=== PATIENT | female | born 1980 | race American Indian/Alaskan Native ===

== ENCOUNTER 2017-03-29 12:08 | Emergency (ER) | payer MEDICAID ==
[2017-03-29 12:50] VITALS: BP 100/60
[2017-03-29] MEDS ORDERED: ZOFRAN ODT PO ONE (15:21)
--- NOTE | 2017-03-29 15:26 | Emergency Department Report ---
ED N/V/D HPI - General Chief complaint: Nausea/Vomiting/Diarrhea Stated complaint: INGESTED MAGGOTS Time Seen by Provider: 03/29/17 15:14 Source: patient Mode of arrival: Ambulatory Limitations: No Limitations - History of Present Illness Initial comments: PT states this morning she fixed herself some cereal. PT states it was a new box of Honey Nut Cheerios and she saw something in it. PT states she noticed what appeared to be maggots. PT states she threw out the bowl of cereal and she poured more cereal from the box and she noticed more maggots. PT states she "freaked out" and threw up. PT states she was concerned because maggots are "flesh eating" PT states she notified the preventive medicine officer. PT states she is not sure if she ingested any maggots. PT states her stomach feels upset. PT States she is hungry but does not have an appetite. complaint: nausea, vomiting -: Sudden, hour(s) Description of Vomiting: food contents Associated Abdominal Pain: No Consistency: constant (nausea ) Improves with: vomiting Context: possible food poisoning Associated Symptoms: loss of appetite, nausea/vomiting. denies: fever/chills - Related Data Previous Rx's Medication Instructions Recorded Last Taken Type Ondansetron [Zofran Odt] 4 mg PO Q8HR PRN #10 tab.rapdis 03/29/17 Unknown Rx Allergies Allergy/AdvReac Type Severity Reaction Status Date / Time No Known Allergies Allergy Unverified 03/29/17 12:44 ED Review of Systems ROS: Stated complaint: INGESTED MAGGOTS Other details as noted in HPI Comment: All other systems reviewed and negative Constitutional: denies: chills, fever Gastrointestinal: nausea, vomiting (x 1 ) Psychiatric: anxiety ED Past Medical Hx - Past Medical History Previous Medical History?: No - Surgical History Additional Surgical History: x 2 , tubal ligation - Social History Smoking Status: Current Some Day Smoker Substance Use Type: Alcohol - Medications Home Medications: Home Medications Medication Instructions Recorded Confirmed Last Taken Type Ondansetron [Zofran Odt] 4 mg PO Q8HR PRN #10 tab.rapdis 03/29/17 Unknown Rx ED Physical Exam - General Limitations: No Limitations General appearance: alert, in no apparent distress - Head Head exam: Present: atraumatic, normocephalic, normal inspection - Eye Eye exam: Present: normal appearance, PERRL, EOMI. Absent: conjunctival injection - ENT ENT exam: Present: normal exam, mucous membranes moist, normal external ear exam - Neck Neck exam: Present: normal inspection, full ROM - Respiratory Respiratory exam: Present: normal lung sounds bilaterally. Absent: respiratory distress, chest wall tenderness - Cardiovascular Cardiovascular Exam: Present: regular rate, normal rhythm, normal heart sounds - GI/Abdominal GI/Abdominal exam: Present: soft, normal bowel sounds. Absent: tenderness, guarding, rebound - Extremities Exam Extremities exam: Present: normal inspection, full ROM - Back Exam Back exam: Present: normal inspection, full ROM. Absent: tenderness, CVA tenderness (R), CVA tenderness (L) - Neurological Exam Neurological exam: Present: alert, oriented X3, normal gait - Psychiatric Psychiatric exam: Present: normal affect, normal mood - Skin Skin exam: Present: warm, dry, intact, normal color ED Course Vital Signs 03/29/17 12:45 Temperature 97.5 F L Pulse Rate 68 Blood Pressure 100/60 O2 Sat by Pulse 100 Oximetry - Reevaluation(s) Reevaluation #1: 03/29/17 15:28 PT aware of plan of care. PT has no questions at this time. - Pulse Oximetry Interpretation Digit-Finger Initial Pulse Oximetry Readin Actions Taken: none ED Medical Decision Making - Differential Diagnosis acute anxiety, ingestion of maggot Critical Care Time: No Critical care attestation.: If time is entered above; I have spent that time in minutes in the direct care of this critically ill patient, excluding procedure time. ED Disposition Clinical Impression: Food contamination, Nausea Disposition: DC-01 TO HOME OR SELFCARE Is pt being admited?: No Does the pt Need Aspirin: No Condition: Stable Instructions: Foreign Body Ingestion (ED) Additional Instructions: clear liquid diet today and then advance as tolerated Prescriptions: Ondansetron [Zofran Odt] 4 mg PO Q8HR PRN #10 tab.rapdis PRN Reason: Nausea Referrals: PRIMARY CARE, [Primary Care Provider] - 3-5 Days JOCELYN BRENNAN MD [Staff Physician] - 3-5 Days Time of Disposition: 15:31
== END 2017-03-29 15:38 | disposition home or self-care (01) ==
LOC: ED 12:08
DX: A05.9 Bacterial foodborne intoxication, unspecified (principal); R11.0 Nausea; Z72.0 Tobacco use
CPT/HCPCS: 99282; Q0162

== ENCOUNTER 2019-04-08 07:49 | Observation (INO) | payer MEDICAID, OTHER ==
[2019-04-07 11:26] LABS: Basophils % (Auto) 0.7 % (0.0-1.8); Eosinophils # (Auto) 0.2 K/mm3 (0.0-0.4); Eosinophils % (Auto) 4.3 % (0.0-4.3); Hematocrit 34.8 % (30.3-42.9); Hemoglobin 11.8 gm/dl (10.1-14.3); Lymphocytes # (Auto) 2.3 K/mm3 (1.2-5.4); Lymphocytes % (Auto) 39.8 % (13.4-35.0); Mean Corpuscular HGB Conc 34 % (30-34); Mean Corpuscular Volume 99 fl (79-97); Monocytes # (Auto) 0.5 K/mm3 (0.0-0.8); Monocytes % (Auto) 8.8 % (0.0-7.3); Platelet Count 438 K/mm3 (140-440); Red Blood Count 3.52 M/mm3 (3.65-5.03)
--- NOTE | 2019-04-07 11:59 | Anesthesia Consultation ---
Anesthesia Consult and Med Hx Date of service: 04/07/19 - Airway Anesthetic Teeth Evaluation: Good ROM Head & Neck: Adequate Mental/Hyoid Distance: Adequate Mallampati Class: Class II Intubation Access Assessment: Probably Good - Pulmonary Exam CTA: Yes - Cardiac Exam Cardiac Exam: RRR - Pre-Operative Health Status ASA Pre-Surgery Classification: ASA2 Proposed Anesthetic Plan: General Nerve Block: TAP - Pulmonary Hx Smoking: Yes (occasional) Hx Asthma: Yes (last albuterol use 1 month ago ) Hx Respiratory Symptoms: No - Cardiovascular System Hx Hypertension: No Hx Heart Attack/AMI: No - Central Nervous System Hx Seizures: No CVA: No - Gastrointestinal Hx Gastroesophageal Reflux Disease: No - Endocrine Hx Renal Disease: No Hx Liver Disease: No Hx Insulin Dependent Diabetes: No Hx Non-Insulin Dependent Diabetes: No Hx Thyroid Disease: No - Other Systems Hx Obesity: No - Additional Comments Anesthesia Medical History Comments: No hx anesthetic complications.
[~2019-04-08 07:49] MED LIST: LACTATED RINGERS 1,000 ML IV SCH; NEURONTIN PO NR; SUBLIMAZE IV PRN; VERSED IV NR
[2019-04-08] MEDS ORDERED: MARCAINE-EPI 0.5%-1:200,000 INFILTRATI ONE (08:42)
--- NOTE | 2019-04-08 10:18 | History and Physical Report ---
History of Present Illness Date of examination: 04/08/19 Date of admission: 04/08/2019 Chief complaint: Dysfunctional uterine bleeding History of present illness: 39-year-old with a history of dysfunctional uterine bleeding and dysmenorrhea. Patient attempted medical management but continues to have worsening of her symptoms. The patient elected to undergo definitive surgical management. Past History Past Medical History: asthma Past Surgical History: section Social history: - Obstetrical History : 5 Para: 2 Hx # Term Pregnancies: 2 Number of Pregnancies: 0 Spontaneous Abortions: 1 Induced : 2 Number of Living Children: 2 Medications and Allergies Allergies Allergy/AdvReac Type Severity Reaction Status Date / Time No Known Allergies Allergy Unverified 04/02/19 19:07 Home Medications Medication Instructions Recorded Confirmed Last Taken Type ALBUTEROL NEB's [Proventil] 2.5 mg IH TID PRN 12/12/18 04/02/19 Unknown History Albuterol Sulfate [Ventolin Hfa] 2 puff IH Q4H PRN 12/12/18 04/02/19 Unknown History Ibuprofen [Motrin] 800 mg PO Q8HR PRN 12/12/18 04/02/19 Unknown History Active Meds: Active Medications Celecoxib (Celebrex) 200 mg PO PREOP NR Stop: 04/08/19 18:00 Last Admin: 04/08/19 08:40 Dose: 200 mg Documented by: Fentanyl (Sublimaze) 100 mcg IV ONCE PRN PRN Reason: sedation for nerve block Stop: 04/08/19 18:00 Gabapentin (Neurontin) 300 mg PO PREOP NR Stop: 04/08/19 18:00 Last Admin: 04/08/19 08:40 Dose: 300 mg Documented by: Lactated Ringer's (Lactated Ringers) 1,000 mls @ 100 mls/hr IV DIRECT LAWANDA Last Admin: 04/08/19 08:40 Dose: 100 mls/hr Documented by: Midazolam HCl (Versed) 2 mg IV PREOP NR Stop: 04/08/19 20:00 Review of Systems All systems: negative Genitourinary: vaginal bleeding, pelvic pain - Vital Signs Vital signs: Vital Signs Temp Pulse Resp BP Pulse Ox 97.4 F L 64 18 108/74 99 04/07/19 10:30 04/07/19 10:30 04/07/19 10:30 04/07/19 10:30 04/07/19 10:30 Temp Pulse Resp BP Pulse Ox 97.5 F L 60 18 108/76 99 04/08/19 08:10 04/08/19 08:10 04/08/19 08:40 04/08/19 08:10 04/08/19 08:10 - Physical Exam Breasts: Positive: deferred Cardiovascular: Regular rate Lungs: Positive: Clear to auscultation Abdomen: Positive: normal appearance Results Result Diagrams: 04/07/19 10:45 Abnormal lab results 04/07/19 Range/Units 10:45 RBC 3.52 L (3.65-5.03) M/mm3 MCV 99 H (79-97) fl MCH 33 H (28-32) pg RDW 13.0 L (13.2-15.2) % Lymph % (Auto) 39.8 H (13.4-35.0) % [place] % (Auto) 8.8 H (0.0-7.3) % All other labs normal. Assessment and Plan - Patient Problems (1) Chronic pelvic pain in female Current Visit: Yes Status: Acute Plan to address problem: Patient is scheduled for robotic hysterectomy and other indicated procedures (2) Dysmenorrhea Current Visit: Yes Status: Acute (3) Dysfunctional uterine bleeding Current Visit: Yes Status: Acute
[2019-04-08] MEDS ORDERED: NEOSPORIN GU IR ONE ×2 (10:30→11:38)
[2019-04-08] MEDS ORDERED: DIPRIVAN 10 MG/ML IV ONE (10:31)
[2019-04-08] MEDS ORDERED: DILAUDID ONE ×2 (10:31→13:26)
[2019-04-08] MEDS ORDERED: ANCEF/STERILE WATER 2 GM/20 ML 2 GM/20 ML SYRINGE IV NR (11:00)
[2019-04-08] MEDS ORDERED: DECADRON ONE (11:29)
[2019-04-08] MEDS ORDERED: ZOFRAN ONE (11:29)
[2019-04-08] MEDS ORDERED: LACTATED RINGERS 1,000 ML ONE ×2 (11:37→13:32)
[2019-04-08] MEDS ORDERED: NACL 0.9% IR ONE ×2 (11:38)
[2019-04-08] MEDS ORDERED: ROBINUL ONE ×2 (12:41)
[2019-04-08] MEDS ORDERED: BLOXIVERZ ONE (12:41)
[2019-04-08] MEDS ORDERED: ZOFRAN IV PRN (12:42)
[2019-04-08] MEDS ORDERED: MORPHINE IV PRN (12:42)
[2019-04-08] MEDS ORDERED: IBUPROFEN PO PRN (12:42)
[2019-04-08] MEDS ORDERED: TYLENOL PO PRN (12:42)
[2019-04-08] MEDS ORDERED: AMBIEN PO PRN (12:42)
--- NOTE | 2019-04-08 12:50 | Operative Report ---
Operative Report Operative Report: Date of surgery: 04/08/2019 Preoperative diagnoses: Dysmenorrhea; chronic pelvic pain Postoperative diagnoses: Same as above Procedure: Robotic hysterectomy and bilateral salpingo-oophorectomy Surgeon: Asia Jarvis M.D. Hobbing Machine Operator: Tereza Sierra Anesthesia: Gen. endotracheal anesthesia Estimated blood loss: 50 mL Pathology: Cervix, uterus, bilateral tubes and ovaries Indication: 39-year-old with a history of chronic pelvic pain and dysmenorrhea. Patient failed medical management and elected to undergo definitive surgical management. Procedure: The patient was taken to the operating room and given general endotracheal anesthesia without complication. She is prepped and draped in a normal sterile fashion. A bivalve speculum was placed in the patient's vagina and a single- tooth tenaculum placed on the anterior lip of the cervix. The uterus was sounded with the uterine sound. A Shoto uterine manipulator was placed in the bivalve speculum was then removed. Attention was then turned to the patient's abdomen where a 12 millimeter supra umbilical skin incision was then made. A Veress needle was placed and peritoneal entry was verified water-filled syringe. Insufflation of the peritoneal cavity was performed with CO2 gas. The 12 mm trocar was then placed under direct visualization. An additional 8 mm trocar was placed on the patient's left and right lateral side just opposite of the supraumbilical trocar. An additional 5 mm right lateral trocar was then placed as the accessory port. The Nghia Booth device was used to close the fascia of the 12 mm incision. The patient was then placed in steep Trendelenburg. General survey revealed evidence of an omental adhesion to the anterior abdominal wall that was lysed with 10 positive polar scissors. There was evidence of bilateral ovarian cysts. The uterus was normal in appearance. The da Natalie robot was then engaged. A fenestrated forcep was placed in arm 2 and a vessel sealer was placed in arm 1. The surgeon then transferred to the surgical console. The infundibulopelvic ligament was then isolated on the right. The vessel sealer was used to coagulate the ligament which was then transected. The tube and ovary were transected from the supply. The round ligament was then coagulated and transected also. The vesicouterine peritoneum was then entered from the patient's right side. The uterine vessels were then coagulated with the vessel sealer. The vessels were then transected . Attention was then turned to the patient's left side where the infundibulopelvic ligament and mesosalpinx were again isolated coagulated and transected. The vesical peritoneum was then entered from the left and joined in the midline. Peritoneum was reflected off of the lower uterine segment. Uterine vessels were then coagulated and then transected. The blood supply to the uterus was adequately contained, a posterior colpotomy was made. The V care ring was visualized. Posterior colpotomy was created with the monopolar scissors. The incision was continued circumferentially until anterior colpotomy was made. The cervix and uterus were amputated from the vaginal cuff. The uterus was then removed along with the tubes and ovaries bilaterally through the vagina and a warm laparotomy sponge was placed and maintain the pneumoperitoneum. The vaginal cuff was then closed in a running fashion with V lock suture. Irrigation of the pelvis was performed. Hemoblast was applied to the incision. The skin was then reapproximated with 4-0 Monocryl. The tissue was sent to pathology which included the cervix, uterus, tubes and ovaries. The patient was then successfully extubated. She was then taken to the recovery room in stable condition. All sponge laps and needle counts were correct x2.
[2019-04-08] MEDS ORDERED: ZEMURON IV ONE (13:00)
[2019-04-08] MEDS ORDERED: DILAUDID IM PRN (13:25)
[2019-04-08] MEDS: TORADOL IV SCH ×2 (16:24→23:45)
[2019-04-08] MEDS: PERCOCET 5/325 PO PRN (19:35)
[2019-04-09] MEDS: PERCOCET 5/325 PO PRN ×2 (04:59→09:01)
[2019-04-09 06:40] LABS: Hematocrit 35.5 % (30.3-42.9)
--- NOTE | 2019-04-09 09:01 | Progress Note ---
Assessment and Plan - Patient Problems (1) Chronic pelvic pain in female Current Visit: Yes Status: Acute Plan to address problem: patient doing well discharge home (2) Dysmenorrhea Current Visit: Yes Status: Acute (3) Dysfunctional uterine bleeding Current Visit: Yes Status: Acute Subjective - Subjective Date of service: 04/09/19 Interval history: Patient having some postop discomfort. Tolerating regular diet. Patient reports: appetite normal, pain well controlled Objective - Vital Signs Latest vital signs: Vital Signs Temp Pulse Resp BP BP Pulse Ox 04/09/19 07:21 98.5 F 63 20 101/52 97 04/09/19 04:59 18 04/09/19 04:30 98.6 F 70 19 119/78 04/09/19 00:15 18 04/09/19 00:00 98.6 F 61 19 117/78 04/08/19 23:45 18 04/08/19 20:35 18 04/08/19 19:35 18 04/08/19 19:30 98.6 F 66 18 121/74 04/08/19 16:35 98 F 73 20 117/79 04/08/19 14:14 97.9 F 80 14 120/63 100 04/08/19 13:48 71 12 121/68 100 04/08/19 13:33 97.7 F 71 14 126/78 100 04/08/19 13:20 12 04/08/19 13:18 68 14 126/78 100 04/08/19 13:13 68 12 119/68 100 04/08/19 13:08 72 12 117/68 100 04/08/19 13:03 97.0 F L 81 13 123/68 100 04/08/19 09:13 81 12 126/74 100 04/08/19 09:08 94 H 11 L 145/76 100 04/08/19 09:03 69 13 128/81 100 Intake and Output 04/08/19 04/09/19 04/09/19 22:59 06:59 14:59 Intake Total 660 540 Output Total 1200 2550 Balance - Intake: Oral 360 240 Intake, Free Water 300 300 Output: Urine 1200 2550 Indwelling Catheter 1200 2550 Other: Total, Intake Amount 240 240 Total, Output Amount 800 1150 Voiding Method Indwelling Catheter
--- NOTE | 2019-04-09 09:02 | Discharge Summary ---
Providers - Providers Date of Admission: 04/08/19 12:42 Date of discharge: 04/09/19 Attending physician: AI PÉREZ Primary care physician: EDD ALLEN Hospitalization Reason for admission: other (chronic pelvic pain) Procedure: other (robotic hysterectomy and BSO) Discharge diagnosis: other (chronic pelvic pain) Hospital course: Patient admitted the day of surgery for a robotic hysterectomy. See op note. Postop uncomplicated Condition at discharge: Good Disposition: DC-01 TO HOME OR SELFCARE - Discharge Diagnoses (1) Chronic pelvic pain in female Status: Acute (2) Dysmenorrhea Status: Acute (3) Dysfunctional uterine bleeding Status: Acute Plan - Discharge Medications Prescriptions: Docusate Sodium [Colace] 100 mg PO BID PRN #60 capsule PRN Reason: Constipation Ibuprofen [Motrin] 800 mg PO Q8HR PRN #60 tablet PRN Reason: Pain, Mild (1-3) oxyCODONE /ACETAMINOPHEN [Percocet 5/325] 1 tab PO Q6HR PRN #30 tablet PRN Reason: Pain - Provider Discharge Summary Activity: no sex for 6 weeks, no heavy lifting 4 weeks, no strenuous exercise Diet: routine Instructions: routine Additional instructions: [] Smoking cessation referral if applicable(refer to patient education folder for contact #) [] Refer to [facility] Booklet Call your doctor immediately for: * Fever > 100.5 * Heavy vaginal bleeding ( >1 pad per hour) * Severe persistent headache * Shortness of breath * Reddened, hot, painful area to leg or breast * Drainage or odor from incision. * Keep incision clean and dry at all times and follow doctor's instructions regarding bathing/showering schedule followup in 4 weeks - Follow up plan
--- NOTE | 2019-04-09 09:26 | Post Anesthesia Evaluation ---
- Post Anesthesia Evaluation Patient Participated: Yes Airway Patent: Yes Stable Respiratory Function: Yes Nausea/Vomiting: No Temp > 96.8F: Yes Pain Manageable: Yes Adequeate Hydration: Yes Anesthesia Complications: No Block Receding Appropriately: Yes Patient on Ventilator: No
[2019-04-09 12:05] VITALS: BP 110/65
== END 2019-04-09 12:52 | disposition home or self-care (01) ==
LOC: OR 07:49 → OB 12:42
PROVIDERS: ADMIT Obstetrics & Gynecology; ATTEND Obstetrics & Gynecology
DX: N93.8 Other specified abnormal uterine and vaginal bleeding (principal); R10.2 Pelvic and perineal pain; N94.6 Dysmenorrhea, unspecified; J45.909 Unspecified asthma, uncomplicated
CPT/HCPCS: 36415; 58552; 64450; 84703; 85014; 85018; 85025; 86850; 86900; 86901; 88307; 90471; 96372; 96374; 96376; A4217; G0378; J1100; J1170; J1885; J2250; J2405; J2704; J2710; J3010; J7120; S2900

== ENCOUNTER 2019-04-11 19:06 | Emergency (ER) | payer MEDICAID ==
[2019-04-11 19:31] VITALS: BP 106/77
--- NOTE | 2019-04-11 19:38 | Event Note ---
ED Screening Note Date of service: 04/11/19 Time: 19:37 ED Screening Note: 39 y o f presents s/p hysterectomy on cc of abd pain This initial assessment/diagnostic orders/clinical plan/treatment(s) is/are subject to change based on patients health status, clinical progression and re- assessment by fellow clinical providers in the ED. Further treatment and workup at subsequent clinical providers discretion. Patient/guardian urged not to elope from the ED as their condition may be serious if not clinically assessed and managed. Initial orders include: labs main side eval
[2019-04-11 20:06] LABS: Basophils % (Auto) 0.4 % (0.0-1.8); Eosinophils # (Auto) 0.3 K/mm3 (0.0-0.4); Eosinophils % (Auto) 3.4 % (0.0-4.3); Hematocrit 36.1 % (30.3-42.9); Hemoglobin 12.1 gm/dl (10.1-14.3); Lymphocytes # (Auto) 1.9 K/mm3 (1.2-5.4); Lymphocytes % (Auto) 25.8 % (13.4-35.0); Mean Corpuscular HGB Conc 34 % (30-34); Mean Corpuscular Volume 99 fl (79-97); Monocytes # (Auto) 0.6 K/mm3 (0.0-0.8); Monocytes % (Auto) 8.4 % (0.0-7.3); Platelet Count 439 K/mm3 (140-440); Red Blood Count 3.65 M/mm3 (3.65-5.03); Red Cell Distribution Width 12.7 % (13.2-15.2)
[2019-04-11] MEDS ORDERED: TORADOL IV ONE (20:16)
[2019-04-11] MEDS ORDERED: NACL 0.9% 1000 ML 1,000 ML IV ONE (20:16)
[2019-04-11] MEDS ORDERED: MORPHINE IV ONE (20:16)
[2019-04-11] MEDS ORDERED: ZOFRAN IV ONE (20:16)
[2019-04-11 20:18] LABS: Alanine Aminotransferase 17 units/L (7-56); Albumin 3.9 g/dL (3.9-5); BUN/Creatinine Ratio 10; Blood Urea Nitrogen 12 mg/dL (7-17); Calcium 9.6 mg/dL (8.4-10.2); Hemolysis Index 3
[2019-04-11] MEDS ORDERED: DELTASONE PO ONE (20:25)
[2019-04-11] MEDS ORDERED: CLARITIN PO ONE (20:25)
--- NOTE | 2019-04-11 21:09 | Emergency Department Report ---
ED Abdominal Pain HPI - General Chief Complaint: Abdominal Pain Stated Complaint: SEVERE PAIN POST HYSTERCTOMY Time Seen by Provider: 04/11/19 19:37 Source: patient Mode of arrival: Ambulatory Limitations: No Limitations - History of Present Illness Initial Comments: is a 39-year-old female with history of asthma who presents with abdominal pain constipation and difficulty with urination for the past 2 days. She is 3 days postop hysterectomy performed on Saturday by Dr. Jarvis. She has severe lower abdominal pressure. Burning when attempting to urinate. She felt lightheaded sweaty. She even fainted briefly due to severe pain. The fainting episode lasted 2 seconds according to her partner /wire coating machine operator at the bedside. She denies bleeding. Denies fever. MD Complaint: abdominal pain -: Gradual, days(s) (2) Location: LLQ, RLQ Severity: severe Severity scale (0 -10): 8 Quality: aching, burning Consistency: constant Improves With: nothing Worsens With: other (straining with urination and bowel movement) Context: recent surgery/procedure Associated Symptoms: syncope - Related Data Home Medications Medication Instructions Recorded Confirmed Last Taken ALBUTEROL NEB's [Proventil] 2.5 mg IH TID PRN 12/12/18 04/02/19 Unknown Albuterol Sulfate [Ventolin Hfa] 2 puff IH Q4H PRN 12/12/18 04/02/19 Unknown Ibuprofen [Motrin] 800 mg PO Q8HR PRN 12/12/18 04/02/19 Unknown Previous Rx's Medication Instructions Recorded Last Taken Type Docusate Sodium [Colace] 100 mg PO BID PRN #60 capsule 04/09/19 Unknown Rx Ibuprofen [Motrin] 800 mg PO Q8HR PRN #60 tablet 04/09/19 Unknown Rx oxyCODONE /ACETAMINOPHEN [Percocet 1 tab PO Q6HR PRN #30 tablet 04/09/19 Unknown Rx 5/325] Allergies Allergy/AdvReac Type Severity Reaction Status Date / Time No Known Allergies Allergy Unverified 04/02/19 19:07 ED Review of Systems ROS: Stated complaint: SEVERE PAIN POST HYSTERCTOMY Other details as noted in HPI Comment: All other systems reviewed and negative Constitutional: malaise Respiratory: denies: cough, shortness of breath, wheezing Cardiovascular: syncope. denies: chest pain Gastrointestinal: abdominal pain, constipation. denies: nausea, vomiting Genitourinary: urgency, dysuria ED Past Medical Hx - Past Medical History Previous Medical History?: Yes Hx Asthma: Yes (Last use of inhaler-week of 12/01/18) - Surgical History Past Surgical History?: Yes Additional Surgical History: x 2 , tubal ligation, Total hysterectomy, - Social History Smoking Status: Light Tobacco Smoker Substance Use Type: None - Medications Home Medications: Home Medications Medication Instructions Recorded Confirmed Last Taken Type ALBUTEROL NEB's [Proventil] 2.5 mg IH TID PRN 12/12/18 04/02/19 Unknown History Albuterol Sulfate [Ventolin Hfa] 2 puff IH Q4H PRN 12/12/18 04/02/19 Unknown History Ibuprofen [Motrin] 800 mg PO Q8HR PRN 12/12/18 04/02/19 Unknown History Docusate Sodium [Colace] 100 mg PO BID PRN #60 capsule 04/09/19 Unknown Rx Ibuprofen [Motrin] 800 mg PO Q8HR PRN #60 tablet 04/09/19 Unknown Rx oxyCODONE /ACETAMINOPHEN [Percocet 1 tab PO Q6HR PRN #30 tablet 04/09/19 Unknown Rx 5/325] ED Physical Exam - General Limitations: No Limitations General appearance: alert, in no apparent distress - Head Head exam: Present: atraumatic, normocephalic - Eye Eye exam: Present: normal appearance - ENT ENT exam: Present: mucous membranes moist - Neck Neck exam: Present: normal inspection, full ROM - Respiratory Respiratory exam: Present: normal lung sounds bilaterally. Absent: respiratory distress, wheezes, rales, rhonchi - Cardiovascular Cardiovascular Exam: Present: regular rate, normal rhythm, normal heart sounds. Absent: systolic murmur, diastolic murmur, rubs, gallop - GI/Abdominal GI/Abdominal exam: Present: soft, normal bowel sounds, other (small laparoscopic surgical incisions clean dry intact healing appropriately). Absent: distended, tenderness, guarding, rebound - Extremities Exam Extremities exam: Present: normal inspection - Back Exam Back exam: Present: normal inspection - Neurological Exam Neurological exam: Present: alert, oriented X3 - Psychiatric Psychiatric exam: Present: normal affect, normal mood - Skin Skin exam: Present: warm, dry, intact, normal color. Absent: rash ED Course Vital Signs 04/11/19 04/11/19 19:27 20:34 Temperature 97 F L Pulse Rate 76 Respiratory 16 18 Rate Blood Pressure 106/77 O2 Sat by Pulse 97 Oximetry ED Medical Decision Making - Lab Data Result diagrams: 04/11/19 19:45 04/11/19 19:45 Laboratory Results - last 24 hr 04/11/19 04/11/19 04/11/19 19:45 19:45 21:40 WBC 7.5 RBC 3.65 Hgb 12.1 Hct 36.1 MCV 99 H MCH 33 H MCHC 34 RDW 12.7 L Plt Count 439 Lymph % (Auto) 25.8 Branch % (Auto) 8.4 H Eos % (Auto) 3.4 Baso % (Auto) 0.4 Lymph # 1.9 Branch # 0.6 Eos # 0.3 Baso # 0.0 Seg Neutrophils % 62.0 Seg Neutrophils # 4.7 Sodium 137 Potassium 4.2 Chloride 96.7 L Carbon Dioxide 26 Anion Gap 19 BUN 12 Creatinine 1.2 Estimated GFR > 60 BUN/Creatinine Ratio 10 Glucose 97 Calcium 9.6 Total Bilirubin 0.20 AST 27 ALT 17 Alkaline Phosphatase 50 Total Protein 7.3 Albumin 3.9 Albumin/Globulin Ratio 1.1 Urine Color Colorless Urine Turbidity Clear Urine pH 6.0 Ur Specific [place] 1.003 Urine Protein <15 mg/dl Urine Glucose (UA) Neg Urine Ketones Neg Urine Blood Sm Urine Nitrite Neg Urine Bilirubin Neg Urine Urobilinogen < 2.0 Ur Leukocyte Esterase Neg Urine WBC (Auto) < 1.0 Urine RBC (Auto) < 1.0 U Epithel Cells (Auto) < 1.0 - EKG Data EKG shows normal: sinus rhythm, axis, intervals, QRS complexes, ST-T waves Rate: normal - EKG Data 04/11/19 22:48 EKG obtained 2218 Normal sinus rhythm rate 80 beats a minute, axis normal intervals no ST elevation no ischemia enlarged P waves indicating atrial enlargement - Radiology Data Radiology results: report reviewed CT A/P revealed free fluid with water densiety and a small amount gas in the peritoneal cavity which could be explained by previous surgical procedure No obvious complications seen, no definite acute abnormality - Medical Decision Making I had a very pleasant encounter with Mrs. Khan and her partner who with constipation severe pelvic pain and burning with urination 3 days s/p laparoscopic hysterectomy. CT abdomen and pelvis with by mouth and IV contrast did not any acute process or surgical complication. Patient explained that she received a pelvic block prior to the operation which provided much relief. She stated that she was so comfortable that she could have "skipped out of the hospital". Her wire coating machine operator suspects that the block has worn off. I do agree that this appear to be postoperative pain with mild ileus. She is passing gas and belching. I recommended clear liquid diet and MiraLAX I also recommended consistent dosing of Colace, Percocet and ibuprofen. She will follow with her surgeon Dr. Jarvis on Saturday. She understands to call or return to the emergency Department for any questions or concerns. Critical care attestation.: If time is entered above; I have spent that time in minutes in the direct care of this critically ill patient, excluding procedure time. ED Disposition Clinical Impression: Post-operative pain, Hx of hysterectomy, Constipation Disposition: - TO HOME OR SELFCARE Is pt being admited?: No Does the pt Need Aspirin: No Condition: Stable Additional Instructions: Please return to the ER for fever pain or new symptoms. It was a pleasure meeting you. Referrals: AI JARVIS MD [Staff Physician] - 3-5 Days
[2019-04-11 21:59] LABS: Bilirubin,Urine NEG (Negative); Blood,Urine SM (Negative); Color,Urine Colorless (Yellow); Protein,Urine <15 mg/dL mg/dL (Negative); RBC,Urine < 1.0 /HPF (0.0-6.0); Urobilinogen,Urine < 2.0 mg/dL (<2.0); WBC,Urine < 1.0 /HPF (0.0-6.0)
--- NOTE | 2019-04-11 22:43 | Cat Scan Report ---
CT ABDOMEN AND PELVIS WITH CONTRAST INDICATION: post op pain, unspecified recent surgical procedure CONTRAST: 100 cc Omnipaque 300 IV, oral COMPARISON: None available. All CT scans at this location are performed using CT dose reduction for ALARA by means of automated e xposure control. FINDINGS: Lung bases show only minimal atelectatic change. Small amount of pneumoperitoneum and small amount of air in the left anterior abdominal wall musculature presumably relate to recent surgical p rocedure, specific type unknown. Minimal subcutaneous emphysema on the right in the anterior pelvic w all probably relates to a recent injection. Moderate amount of free fluid is seen distributed throughout the abdomen and pelvis measuring water d ensity which may also relate to recent surgical procedure. Gallbladder is distended and may show mini mal sludge but no calculi or wall thickening are seen. No biliary dilatation is noted. Pancreas is no t obviously inflamed. No urinary tract calculi or obstructive changes are seen. No evidence of bowel obstruction is noted. No masses are seen. Appendix is not visualized. IMPRESSION: Fluid and a small amount of gas in the peritoneal cavity presumably relates to an unspeci fied recent surgical procedure suggested in the history. No obvious complication is seen. No definite acute abnormality is noted in this setting. Signer Name: Scott Boston MD Signed: 04/11/2019 10:38 PM Workstation Name: [id number]
[2019-04-11] MEDS ORDERED: PERCOCET 5/325 PO ONE (22:51)
== END 2019-04-11 23:30 | disposition home or self-care (01) ==
LOC: ED 19:06
DX: K59.00 Constipation, unspecified (principal); G89.18 Other acute postprocedural pain; R42 Dizziness and giddiness; J45.909 Unspecified asthma, uncomplicated; F17.200 Nicotine dependence, unspecified, uncomplicated; Z90.710 Acquired absence of both cervix and uterus; Z98.51 Tubal ligation status; Z79.899 Other long term (current) drug therapy
CPT/HCPCS: 36415; 74177; 80053; 81001; 85025; 93005; 93010; 96361; 96374; 96375; 99284; J1885; J2270; J2405; J7030; Q9967

== ENCOUNTER 2019-04-14 12:46 | Inpatient (IN) | payer MEDICAID ==
[2019-04-14] MEDS ORDERED: NARCAN 0.4 MG/1 ML IV PRN (13:24)
[2019-04-14] MEDS ORDERED: ZOFRAN IV PRN (13:24)
[2019-04-14] MEDS ORDERED: REGLAN IV PRN (13:24)
[2019-04-14] MEDS ORDERED: D5LR 1,000 ML IV SCH (13:30)
--- NOTE | 2019-04-14 13:31 | History and Physical Report ---
History of Present Illness Date of examination: 04/14/19 Chief complaint: nausea, vomiting, constipation, abdominal pain History of present illness: Pt is a 39 year old -[place] female s/p robotic hysterectomy with bilateral salpingo-oophorectomy on 04/08/19 who presents c/o two days of inability to tolerate solid or liquid oral intake and severe abdominal pain as she has had emesis after each attempt to take either of her pain medications for the last two days. She notes that she felt well for the first two days after she was discharged. Then on Saturday04/11/19 she reports worsening abdominal pain and some nausea. She was evaluated in the [facility] Emergency Department on 04/11/19. She had a CT scan at that time that showed no evidence of a bowel obstruction. However, she reports that her symptoms worsened each day until now she is not tolerating anything by mouth. Past History Past Medical History: asthma Past Surgical History: section, D&C, hysterectomy SPECIAL LIBRARIAN History: herpes Family/Genetic History: heart disease, hypertension Social history: no significant social history - Obstetrical History : 5 Para: 2 Medications and Allergies Allergies Allergy/AdvReac Type Severity Reaction Status Date / Time No Known Allergies Allergy Unverified 04/02/19 19:07 Home Medications Medication Instructions Recorded Confirmed Last Taken Type ALBUTEROL NEB's [Proventil] 2.5 mg IH TID PRN 12/12/18 04/02/19 Unknown History Albuterol Sulfate [Ventolin Hfa] 2 puff IH Q4H PRN 12/12/18 04/02/19 Unknown History Ibuprofen [Motrin] 800 mg PO Q8HR PRN 12/12/18 04/02/19 Unknown History Docusate Sodium [Colace] 100 mg PO BID PRN #60 capsule 04/09/19 Unknown Rx Ibuprofen [Motrin] 800 mg PO Q8HR PRN #60 tablet 04/09/19 Unknown Rx oxyCODONE /ACETAMINOPHEN [Percocet 1 tab PO Q6HR PRN #30 tablet 04/09/19 Unknown Rx 5/325] Active Meds: Active Medications Dextrose/Lactated Ringer's (D5lr) 1,000 mls @ 150 mls/hr IV DIRECT LAWANDA Morphine Sulfate (Morphine) 2 mg IV Q4H PRN PRN Reason: Pain, Moderate (4-6) Review of Systems All systems: negative - Physical Exam Breasts: Positive: deferred Cardiovascular: Regular rate Lungs: Positive: Clear to auscultation Abdomen: Positive: soft, distention (mild ), tenderness, abnormal bowel sounds (near absent bowel sounds ) Extremities: Positive: normal Results All other labs normal. Assessment and Plan A: POD#6 s/p robotic hysterectomy with bilateral salpingo-oophorectomy Nausea/vomiting/inability to tolerate oral intake concerning for post operative ileus vs small bowl obstruction Abdominal pain Asthma P: Admit to hospital for IV hydration, antiemetics and supportive care Serial abdominal exams Abdominal Xray Closely monitor clinical status
[2019-04-14] MEDS ORDERED: PROVENTIL IH PRN (13:39)
[2019-04-14] MEDS ORDERED: TORADOL IV SCH (14:00)
[2019-04-14 14:23] LABS: Hematocrit 40.7 % (30.3-42.9); Hemoglobin 13.3 gm/dl (10.1-14.3); Mean Corpuscular HGB Conc 33 % (30-34); Mean Corpuscular Volume 99 fl (79-97); Platelet Count 568 K/mm3 (140-440); Red Blood Count 4.11 M/mm3 (3.65-5.03); Red Cell Distribution Width 12.7 % (13.2-15.2)
[2019-04-14 14:42] LABS: Albumin 4.3 g/dL (3.9-5); Calcium 8.4 mg/dL (8.4-10.2)
--- NOTE | 2019-04-14 15:53 | XRay Report ---
ABDOMEN 2 VIEW(S) INDICATION / CLINICAL INFORMATION: s/p robotic hysterectomy 04/08; nausea, vomiting, ab. COMPARISON: None available. FINDINGS: TUBES / LINES: None. BOWEL GAS PATTERN: No significant abnormality. There is residual oral contrast in the cecum and ascen ding colon. FREE AIR / EXTRALUMINAL GAS: None seen. ADDITIONAL FINDINGS: No significant additional findings. IMPRESSION: No significant abnormality. Signer Name: Erlin Urban Jr, MD Signed: 04/14/2019 3:49 PM Workstation Name: [id number]
[2019-04-14] MEDS: MORPHINE IV PRN ×2 (17:56→23:17)
--- NOTE | 2019-04-14 18:16 | Event Note ---
Date: 04/14/19 Late entry. Labs noted from CMP with hyponatremia, hypekalemia, and acute renal failure. Repeat BMP with new blood draw STAT. Hold NSAIDs. Monitor clinical status closely. Pt also reports not voiding since early this morning. Weiner catheter placed to decompress bladder and monitor urine output.
[2019-04-14 18:41] LABS: Calcium 8.1 mg/dL (8.4-10.2)
[2019-04-14 19:26] LABS: Bilirubin,Urine NEG (Negative); Blood,Urine NEG (Negative); Color,Urine Yellow (Yellow); Mucus,Urine FEW /HPF; Urobilinogen,Urine < 2.0 mg/dL (<2.0)
[2019-04-14] MEDS ORDERED: NACL 0.9% 1000 ML 1,000 ML IV SCH (21:30)
--- NOTE | 2019-04-14 21:38 | Event Note ---
Date: 04/14/19 Pt is feeling better at this time. Weiner in place with clear pale urine in bag. Contact made with Professor Of Social Work. IV fluids changed to normal saline. Bicarb drip ordered by Nephrology. Repeat labs in the morning. Closely monitor clinical status. Pt updated on clinical scenario, all questions answered.
[2019-04-14] MEDS ORDERED: SODIUM BICARBONATE 150 MEQ in D5W 1,000 ML IV SCH (22:00)
--- NOTE | 2019-04-14 22:40 | Ultrasound Report ---
ULTRASOUND RENAL INDICATION: harley. COMPARISON: No relevant prior imaging study available. FINDINGS: RIGHT KIDNEY: Size: 11.9 cm. Echogenicity: Normal. Cortical thickness: Normal. Stones: None. Hydronephrosis: None. Cyst or mass: None. LEFT KIDNEY: Size: 9.1 cm. Echogenicity: Normal. Cortical thickness: Normal. Stones: None. Hydronephrosis: None. Cyst or mass: None. Urinary Bladder: Bladder is collapsed around a Weiner catheter.. Free Fluid: None. Additional Findings: None. IMPRESSION 1. No acute sonographic abnormality of the kidneys. Signer Name: Mark He MD Signed: 04/14/2019 10:36 PM Workstation Name: [id number]
[2019-04-14] MEDS: AMBIEN PO PRN (23:18)
[2019-04-14] MEDS: DULCOLAX PR PRN (23:18)
[2019-04-15] MEDS ORDERED: DIFLUCAN PO ONE (00:02)
[2019-04-15] MEDS: PERCOCET 5/325 PO PRN ×3 (08:33→22:27)
[2019-04-15 09:00] LABS: BUN/Creatinine Ratio 9; Blood Urea Nitrogen 9 mg/dL (7-17); Calcium 8.4 mg/dL (8.4-10.2); Hemolysis Index 7
[2019-04-15 09:10] LABS: Hematocrit 38.4 % (30.3-42.9); Hemoglobin 12.6 gm/dl (10.1-14.3); Mean Corpuscular HGB Conc 33 % (30-34); Mean Corpuscular Volume 98 fl (79-97); Platelet Count 552 K/mm3 (140-440); Red Blood Count 3.93 M/mm3 (3.65-5.03); Red Cell Distribution Width 12.5 % (13.2-15.2)
--- NOTE | 2019-04-15 09:47 | Consultation ---
History of Present Illness - History of Present Illness My assessment and plan are as follows Acute kidney stream mostly resulting from volume depletion renal ultrasonogram unremarkable hydration alone has helped the renal function Continue with close intake and output monitoring Hydration, monitoring of labs avoid ibuprofen altogether Overall she is doing much better from renal standpoint Educated the patient about all the renal related issues She was advised to make an appointment office upon discharge Instructed her not to use any follow-up NSAIDs maintain hydration and follow-up We'll continue to follow and make recommendation from renal standpoint If you have any questions please feel free to contact me at [phone] Rey Borrego M.D. [facility] [address] [facility] [place] [address] History of presenting illness Patient is a 39-year-old -Turkmen female who underwent robotic hysterectomy with bilateral salpingo-oophorectomy on 04/08/2019, patient has been admitted here with extremely poor by mouth intake abdominal pain nausea and vomiting, CAT scan that was obtained recently did not show any evidence of bowel obstruction, was also feeling dizzy and lightheaded upon standing and felt very dry in her mouth She was taking ibuprofen in the outpatient setting Creatinine upon admission was 6.4 with a BUN of 35 potassium was 6.0 with a sodium of 129 all these labs have essentially normalized today her creatinine is 1.0 with a sodium of 137 with hydration alone Urinalysis shows 30 mg protein in the urine no evidence of any blood Renal ultrasonogram that was obtained yesterday shows no abnormality History: Reviewed from the chart Family social history: Reviewed from the chart Current allergies: None Home medication present medication: Reviewed from the chart Review of system: Poor by mouth intake nausea vomiting dry mild dizziness lightheadedness All other review of systems negative recent hysterectomy/lateral salpingo- oophorectomy Physical examination: General: No acute distress HEENT: Oral mucosa dry no icterus, no facial swelling Neck: Supple no thyromegaly no lymphadenopathy no JVD Chest: Clear to auscultation no crackles rales or wheezes Heart: Regular rate and rhythm S1-S2 heard no S3-S4 Abdomen: post operative abdomen ,Soft nontender no organomegaly no masses palpable no renal bruit no suprapubic masses no CVA tenderness Dermatology: No skin rashes noted Extremity: Less than 1+ peripheral edema, dry skin no petechial rashes Musculoskeletal: No joint effusion noted in knee and ankle area Psych: No evidence of agitation and aggression noted Neurological: Alert awake follows commands no tremors no myoclonus Back: No CVA tenderness Past History Social history: no significant social history Medications and Allergies Allergies Allergy/AdvReac Type Severity Reaction Status Date / Time No Known Allergies Allergy Unverified 04/02/19 19:07 Home Medications Medication Instructions Recorded Confirmed Last Taken Type ALBUTEROL NEB's [Proventil] 2.5 mg IH TID PRN 12/12/18 04/14/19 Unknown History Albuterol Sulfate [Ventolin Hfa] 2 puff IH Q4H PRN 12/12/18 04/14/19 2 Months Ago History ~02/11/19 Ibuprofen [Motrin] 800 mg PO Q8HR PRN 12/12/18 04/14/19 04/13/19 23:00 History Docusate Sodium [Colace] 100 mg PO BID PRN #60 capsule 04/09/19 04/14/19 04/13/19 Rx Ibuprofen [Motrin] 800 mg PO Q8HR PRN #60 tablet 04/09/19 04/14/19 04/13/19 23:00 Rx oxyCODONE /ACETAMINOPHEN [Percocet 1 tab PO Q6HR PRN #30 tablet 04/09/19 04/14/19 04/13/19 23:00 Rx 5/325] oxyCODONE /ACETAMINOPHEN [Percocet 1 tab PO Q6HR PRN #30 tablet 04/16/19 Unknown Rx 5/325] Active Meds: Active Medications Albuterol (Proventil) 2.5 mg IH Q4HRT PRN PRN Reason: Shortness Of Breath Bisacodyl (Dulcolax) 10 mg NE QDAY PRN PRN Reason: Constipation Sodium Bicarbonate 150 meq/ (Dextrose) 1,150 mls @ 150 mls/hr IV DIRECT LAWANDA Last Admin: 04/14/19 23:18 Dose: 150 mls/hr Documented by: Sodium Chloride (Nacl 0.9% 1000 Ml) 1,000 mls @ 150 mls/hr IV DIRECT LAWANDA Last Admin: 04/14/19 23:41 Dose: 150 mls/hr Documented by: Metoclopramide HCl (Reglan) 10 mg IV Q6H PRN PRN Reason: Nausea And Vomiting Last Admin: 04/15/19 08:44 Dose: 10 mg Documented by: Morphine Sulfate (Morphine) 2 mg IV Q4H PRN PRN Reason: Pain, Moderate (4-6) Last Admin: 04/14/19 23:17 Dose: 2 mg Documented by: Naloxone HCl (Narcan 0.4 Mg/1 Ml) 0.1 mg IV Q2MIN PRN PRN Reason: Res Rate </= 8 or 02 SAT < 92% Ondansetron HCl (Zofran) 4 mg IV Q8H PRN PRN Reason: Nausea And Vomiting Last Admin: 04/15/19 08:45 Dose: 4 mg Documented by: Oxycodone/Acetaminophen (Percocet 5/325) 2 tab PO Q6H PRN PRN Reason: Pain, Moderate (4-6) Last Admin: 04/15/19 08:33 Dose: 2 tab Documented by: Zolpidem Tartrate (Ambien) 10 mg PO QHS PRN PRN Reason: Insomnia Last Admin: 04/14/19 23:18 Dose: 10 mg Documented by: Exam - Vital Signs Vital signs: Vital Signs Temp Pulse Resp BP Pulse Ox 97.7 F 129 H 18 124/80 98 04/14/19 13:40 04/14/19 13:40 04/14/19 13:40 04/14/19 13:40 04/14/19 13:40 Results - Lab Results 04/16/19 07:15 04/16/19 07:15 Most recent lab results Calcium 8.4 mg/dL (8.4-10.2) 04/15/19 08:27
[2019-04-15] MEDS ORDERED: D5LR 1,000 ML IV SCH (10:30)
--- NOTE | 2019-04-15 12:47 | Consultation ---
History of Present Illness - Reason for Consult Consult date: 04/15/19 Abdominal pain, MESERET, nausea, vomiting Requesting physician: BELKYS VILLARREAL - History of Present Illness Patient is 39 yo who had robotic hysterectomy and bilateral salpingo- oophorectomy on 04/08/19 and was discharged home. She now presented with abdominal pain, nausea and vomiting. She was seen and evaluated in ED and diagnosed with acute kidney injury with Cr 6.4, hyperkalemia with Potassium of 6. She was admitted by [facility] and nephrology consulted. hospitalist consulted for medical management. She has improved with Creatinine 1.0 today. less abdominal pain, less vomiting. Past History Past Medical History: other (Asthma) Past Surgical History: , hysterectomy, Other (D and C) Social history: , lives with family, full code Family history: hypertension, other (Heart disease) Medications and Allergies Allergies Allergy/AdvReac Type Severity Reaction Status Date / Time No Known Allergies Allergy Unverified 04/02/19 19:07 Home Medications Medication Instructions Recorded Confirmed Last Taken Type ALBUTEROL NEB's [Proventil] 2.5 mg IH TID PRN 12/12/18 04/14/19 Unknown History Albuterol Sulfate [Ventolin Hfa] 2 puff IH Q4H PRN 12/12/18 04/14/19 2 Months Ago History ~02/11/19 Ibuprofen [Motrin] 800 mg PO Q8HR PRN 12/12/18 04/14/19 04/13/19 23:00 History Docusate Sodium [Colace] 100 mg PO BID PRN #60 capsule 04/09/19 04/14/19 04/13/19 Rx Ibuprofen [Motrin] 800 mg PO Q8HR PRN #60 tablet 04/09/19 04/14/19 04/13/19 23:00 Rx oxyCODONE /ACETAMINOPHEN [Percocet 1 tab PO Q6HR PRN #30 tablet 04/09/19 04/14/19 04/13/19 23:00 Rx 5/325] oxyCODONE /ACETAMINOPHEN [Percocet 1 tab PO Q6HR PRN #30 tablet 04/16/19 Unknown Rx 5/325] Active Meds: Active Medications Albuterol (Proventil) 2.5 mg IH Q4HRT PRN PRN Reason: Shortness Of Breath Bisacodyl (Dulcolax) 10 mg [place] QDAY PRN PRN Reason: Constipation Dextrose/Lactated Ringer's (D5lr) 1,000 mls @ 150 mls/hr IV DIRECT LAWANDA Metoclopramide HCl (Reglan) 10 mg IV Q6H PRN PRN Reason: Nausea And Vomiting Last Admin: 04/15/19 08:44 Dose: 10 mg Documented by: Morphine Sulfate (Morphine) 2 mg IV Q4H PRN PRN Reason: Pain, Moderate (4-6) Last Admin: 04/14/19 23:17 Dose: 2 mg Documented by: Naloxone HCl (Narcan 0.4 Mg/1 Ml) 0.1 mg IV Q2MIN PRN PRN Reason: Res Rate </= 8 or 02 SAT < 92% Ondansetron HCl (Zofran) 4 mg IV Q8H PRN PRN Reason: Nausea And Vomiting Last Admin: 04/15/19 08:45 Dose: 4 mg Documented by: Oxycodone/Acetaminophen (Percocet 5/325) 2 tab PO Q6H PRN PRN Reason: Pain, Moderate (4-6) Last Admin: 04/15/19 08:33 Dose: 2 tab Documented by: Zolpidem Tartrate (Ambien) 10 mg PO QHS PRN PRN Reason: Insomnia Last Admin: 04/14/19 23:18 Dose: 10 mg Documented by: Review of Systems All systems: negative (No fever, no headache, no chest pain. All other systems reviewed and are negative) Exam - Physical Exam Narrative exam: Gen: Not in acute distress, Lying in bed HEENT: Normocephalic, atraumatic Neck: supple, no JVD Heart: S1 and S2 reg, no murmurs, rubs or gallop Lungs: Clear to auscultation, no rhonchi, no wheeze Abd: soft, mild tender, no rebound, non distended, normal BS, Ext: No edema, no clubbing, no cyanosis Neuro: Awake, alert, oriented X 3, no focal neurological signs - Constitutional Vitals: Temp Pulse Resp BP Pulse Ox 98.6 F 115 H 18 100/62 98 04/15/19 08:03 04/15/19 08:03 04/15/19 08:03 04/15/19 08:03 04/15/19 08:03 Results - Labs CBC & Chem 7: 04/16/19 07:15 04/16/19 07:15 Labs: Abnormal lab results 04/14/19 04/14/19 04/14/19 Range/Units 13:54 13:54 18:00 MCV 99 H (79-97) fl RDW 12.7 L (13.2-15.2) % Plt Count 568 H (140-440) K/mm3 Sodium 129 L D 132 L (137-145) mmol/L Potassium 6.0 H D (3.6-5.0) mmol/L Chloride 88.4 L 91.5 L (98-107) mmol/L Carbon Dioxide 21 L 21 L (22-30) mmol/L BUN 35 H 36 H (7-17) mg/dL Creatinine 6.4 H D 6.8 H (0.7-1.2) mg/dL Glucose 122 H 135 H (65-100) mg/dL Calcium 8.1 L (8.4-10.2) mg/dL Total Protein 8.8 H D (6.3-8.2) g/dL Lipase 7 L (13-60) units/L 04/15/19 04/15/19 Range/Units 08:27 08:27 MCV 98 H (79-97) fl RDW 12.5 L (13.2-15.2) % Plt Count 552 H (140-440) K/mm3 Sodium (137-145) mmol/L Potassium (3.6-5.0) mmol/L Chloride 97.0 L (98-107) mmol/L Carbon Dioxide (22-30) mmol/L BUN (7-17) mg/dL Creatinine (0.7-1.2) mg/dL Glucose 113 H (65-100) mg/dL Calcium (8.4-10.2) mg/dL Total Protein (6.3-8.2) g/dL Lipase (13-60) units/L Assessment and Plan s/p Robotic hysterectomy and bilat salpingo-oophorectomy on 04/08/19 Admitted to [facility]. Acute kidney injury due to vasomotor nephropathy Much improved Cont iv fluid nephrology following nausea and vomiting due to Uremia Improved Hyperkalemia due to MESERET Resolved Hyponatremia Resolved Asythma Stable. Hypophosphatemia Replace and recheck Thanks Dr. Villarreal, for consulting us. will follow.
--- NOTE | 2019-04-15 13:09 | Progress Note ---
Assessment and Plan A/P HD#1 post op n,v appreciate renal consult -will follow instructions -continue with IVF await medicine consult continue present mgt ( cr- down to 1 from 6) Subjective - Subjective Date of service: 04/15/19 Principal diagnosis: Prerenal kidney, n,v Patient reports: appetite normal, voiding normally (becker), pain well controlled, ambulating normally Objective - Vital Signs Latest vital signs: Vital Signs Temp Pulse Resp BP BP Pulse Ox 04/15/19 08:03 98.6 F 115 H 18 100/62 98 04/15/19 04:14 98.4 F 122 H 18 93/50 97 04/14/19 23:47 18 04/14/19 23:33 98.2 F 18 104/69 04/14/19 23:17 18 04/14/19 19:24 99.0 F 100 H 20 109/71 99 04/14/19 15:55 97.9 F 110 H 20 104/74 98 04/14/19 13:40 97.7 F 129 H 18 124/80 98 Intake and Output 04/14/19 04/15/19 04/15/19 23:59 07:59 15:59 Intake Total 240 Balance 240 Intake: Oral 240 Other: Total, Intake Amount 240 Voiding Method Indwelling Catheter - Exam Breasts: Present: normal Cardiovascular: Present: Regular rate, Normal S1 Lungs: Present: Clear to auscultation, Normal air movement Abdomen: Present: normal appearance, soft, normal bowel sounds. Absent: distention, tenderness, guarding Vulva: both: normal Extremities: Present: normal Deep Tendon Reflex Grade: Normal +2 Incision: Present: normal, dry, intact - Labs Labs: Abnormal lab results 04/14/19 04/14/19 04/14/19 Range/Units 13:54 13:54 18:00 MCV 99 H (79-97) fl RDW 12.7 L (13.2-15.2) % Plt Count 568 H (140-440) K/mm3 Sodium 129 L D 132 L (137-145) mmol/L Potassium 6.0 H D (3.6-5.0) mmol/L Chloride 88.4 L 91.5 L (98-107) mmol/L Carbon Dioxide 21 L 21 L (22-30) mmol/L BUN 35 H 36 H (7-17) mg/dL Creatinine 6.4 H D 6.8 H (0.7-1.2) mg/dL Glucose 122 H 135 H (65-100) mg/dL Calcium 8.1 L (8.4-10.2) mg/dL Total Protein 8.8 H D (6.3-8.2) g/dL Lipase 7 L (13-60) units/L 04/15/19 04/15/19 Range/Units 08:27 08:27 MCV 98 H (79-97) fl RDW 12.5 L (13.2-15.2) % Plt Count 552 H (140-440) K/mm3 Sodium (137-145) mmol/L Potassium (3.6-5.0) mmol/L Chloride 97.0 L (98-107) mmol/L Carbon Dioxide (22-30) mmol/L BUN (7-17) mg/dL Creatinine (0.7-1.2) mg/dL Glucose 113 H (65-100) mg/dL Calcium (8.4-10.2) mg/dL Total Protein (6.3-8.2) g/dL Lipase (13-60) units/L
[2019-04-15] MEDS ORDERED: MIRALAX 3350 PO PRN (14:32)
[2019-04-15] MEDS ORDERED: SODIUM PHOSPHATE 30 MMOL in NACL 0.9% 500 ML 500 ML IV ONE (15:16)
--- NOTE | 2019-04-15 18:21 | Event Note ---
Date: 04/15/19 Patient is much better. Patient states that she had +flatus. Feels like she can perform BM. pain manageable with pain meds. Appreciate nephrology note. Await med consult. labs for in am to follow. Continue present mgt
[2019-04-16] MEDS: DULCOLAX PR PRN (00:21)
[2019-04-16] MEDS: AMBIEN PO PRN (00:32)
[2019-04-16 07:26] LABS: Basophils % (Auto) 0.3 % (0.0-1.8); Eosinophils # (Auto) 0.5 K/mm3 (0.0-0.4); Hematocrit 31.6 % (30.3-42.9); Hemoglobin 10.7 gm/dl (10.1-14.3); Lymphocytes # (Auto) 2.2 K/mm3 (1.2-5.4); Lymphocytes % (Auto) 32.5 % (13.4-35.0); Mean Corpuscular HGB Conc 34 % (30-34); Mean Corpuscular Volume 98 fl (79-97); Monocytes # (Auto) 0.9 K/mm3 (0.0-0.8); Monocytes % (Auto) 13.1 % (0.0-7.3); Platelet Count 432 K/mm3 (140-440); Red Blood Count 3.24 M/mm3 (3.65-5.03); Red Cell Distribution Width 12.6 % (13.2-15.2)
[2019-04-16 07:51] LABS: Alanine Aminotransferase 9 units/L (7-56); Albumin 3.1 g/dL (3.9-5); BUN/Creatinine Ratio 7; Blood Urea Nitrogen 4 mg/dL (7-17); Calcium 8.6 mg/dL (8.4-10.2); Hemolysis Index 7
--- NOTE | 2019-04-16 08:37 | Progress Note ---
Assessment and Plan A: POD#8 s/p robotic hysterectomy with bilateral salpingo-oophorectomy Nausea/vomiting/inability to tolerate- resolved Prerenal acute renal insufficiency- resolving Abdominal pain- improved Asthma P: Pt is much improved from admission and is stable for discharge later today from [facility] [employer] perspective Discontinue becker catheter Verify that she may be discharged from renal perspective Continue to avoid NSAIDs Subjective - Subjective Date of service: 04/16/19 Principal diagnosis: Prerenal kidney, n,v Interval history: Pt continues to improve clinically. She had a bowel movement last night and her abdominal pain is improved. She is tolerating a regular diet and is making adequate clear urine. Patient reports: appetite normal, pain well controlled, flatus, bowel movement, ambulating normally, no voiding normally (becker in place , normal output ), no nauseated Objective - Vital Signs Latest vital signs: Vital Signs Temp Pulse Pulse Pulse Resp BP Pulse Ox 04/16/19 07:45 98.4 F 74 18 119/61 100 04/16/19 04:55 97.9 F 69 18 102/59 99 04/16/19 00:24 98.2 F 65 18 108/54 97 04/15/19 22:00 89 89 18 04/15/19 19:23 98.3 F 89 18 105/55 100 04/15/19 16:27 97.1 F L 82 18 101/58 98 04/15/19 12:38 98.1 F 92 H 18 102/63 97 Intake and Output 04/15/19 04/16/19 04/16/19 22:59 06:59 14:59 Intake Total 480 Output Total 700 Balance -220 Intake: Oral 480 Output: Urine 700 Indwelling Catheter 700 Other: Total, Intake Amount 480 Total, Output Amount 700 Voiding Method Indwelling Catheter # Voids Indwelling Catheter 1,600 - Exam Breasts: Present: deferred Cardiovascular: Present: Regular rate Lungs: Present: Clear to auscultation Abdomen: Present: soft, normal bowel sounds Extremities: Present: normal Incision: Present: intact - Labs Labs: Abnormal lab results 04/15/19 04/15/19 04/15/19 Range/Units 08:27 08:27 12:59 RBC (3.65-5.03) M/mm3 MCV 98 H (79-97) fl MCH (28-32) pg RDW 12.5 L (13.2-15.2) % Plt Count 552 H (140-440) K/mm3 Tyler % (Auto) (0.0-7.3) % Eos % (Auto) (0.0-4.3) % Tyler # (0.0-0.8) K/mm3 Eos # (0.0-0.4) K/mm3 Chloride 97.0 L (98-107) mmol/L BUN (7-17) mg/dL Creatinine (0.7-1.2) mg/dL Glucose 113 H (65-100) mg/dL Phosphorus 2.20 L (2.5-4.5) mg/dL Total Protein (6.3-8.2) g/dL Albumin (3.9-5) g/dL 04/16/19 04/16/19 Range/Units 07:15 07:15 RBC 3.24 L (3.65-5.03) M/mm3 MCV 98 H (79-97) fl MCH 33 H (28-32) pg RDW 12.6 L (13.2-15.2) % Plt Count (140-440) K/mm3 Tyler % (Auto) 13.1 H (0.0-7.3) % Eos % (Auto) 8.0 H (0.0-4.3) % Tyler # 0.9 H (0.0-0.8) K/mm3 Eos # 0.5 H (0.0-0.4) K/mm3 Chloride (98-107) mmol/L BUN 4 L (7-17) mg/dL Creatinine 0.6 L (0.7-1.2) mg/dL Glucose (65-100) mg/dL Phosphorus (2.5-4.5) mg/dL Total Protein 5.7 L D (6.3-8.2) g/dL Albumin 3.1 L (3.9-5) g/dL
[2019-04-16] MEDS: PERCOCET 5/325 PO PRN ×2 (08:44→16:20)
--- NOTE | 2019-04-16 09:26 | Event Note ---
Renal function has been normalized Instructed not to take any form of nonsteroidal drugs We'll sign off the case Patient was told to make an appointment in the office sometime in a week or 2
--- NOTE | 2019-04-16 11:21 | Event Note ---
Date: 04/16/19 I have seen and examined patient. She is medically/renally stable for discharge.
--- NOTE | 2019-04-16 11:21 | Progress Note ---
History Interval history: fells fine No more vomiting Hospitalist Physical - Physical exam Narrative exam: Gen: Not in acute distress, Lying in bed HEENT: Normocephalic, atraumatic Neck: supple, no JVD Heart: S1 and S2 reg, no murmurs, rubs or gallop Lungs: Clear to auscultation, no rhonchi, no wheeze Abd: soft, mild tender, no rebound, non distended, normal BS, Ext: No edema, no clubbing, no cyanosis Neuro: Awake, alert, oriented X 3, no focal neurological signs - Constitutional Vitals: Temp Pulse Resp BP Pulse Ox 98.4 F 74 18 119/61 100 04/16/19 07:45 04/16/19 07:45 04/16/19 07:45 04/16/19 07:45 04/16/19 07:45 Results - Labs CBC & Chem 7: 04/16/19 07:15 04/16/19 07:15 Labs: Laboratory Last Values WBC 6.8 K/mm3 (4.5-11.0) 04/16/19 07:15 RBC 3.24 M/mm3 (3.65-5.03) L 04/16/19 07:15 Hgb 10.7 gm/dl (10.1-14.3) 04/16/19 07:15 Hct 31.6 % (30.3-42.9) D 04/16/19 07:15 MCV 98 fl (79-97) H 04/16/19 07:15 MCH 33 pg (28-32) H 04/16/19 07:15 MCHC 34 % (30-34) 04/16/19 07:15 RDW 12.6 % (13.2-15.2) L 04/16/19 07:15 Plt Count 432 K/mm3 (140-440) 04/16/19 07:15 Lymph % (Auto) 32.5 % (13.4-35.0) 04/16/19 07:15 [place] % (Auto) 13.1 % (0.0-7.3) H 04/16/19 07:15 Eos % (Auto) 8.0 % (0.0-4.3) H 04/16/19 07:15 Baso % (Auto) 0.3 % (0.0-1.8) 04/16/19 07:15 Lymph # 2.2 K/mm3 (1.2-5.4) 04/16/19 07:15 [place] # 0.9 K/mm3 (0.0-0.8) H 04/16/19 07:15 Eos # 0.5 K/mm3 (0.0-0.4) H 04/16/19 07:15 Baso # 0.0 K/mm3 (0.0-0.1) 04/16/19 07:15 Seg Neutrophils % 46.1 % (40.0-70.0) 04/16/19 07:15 Seg Neutrophils # 3.1 K/mm3 (1.8-7.7) 04/16/19 07:15 Sodium 141 mmol/L (137-145) 04/16/19 07:15 Potassium 4.5 mmol/L (3.6-5.0) 04/16/19 07:15 Chloride 103.8 mmol/L (98-107) 04/16/19 07:15 Carbon Dioxide 29 mmol/L (22-30) 04/16/19 07:15 13 mmol/L 04/16/19 07:15 BUN 4 mg/dL (7-17) L 04/16/19 07:15 0.6 mg/dL (0.7-1.2) L 04/16/19 07:15 Estimated GFR > 60 ml/min 04/16/19 07:15 7 % 04/16/19 07:15 Glucose 89 mg/dL (65-100) 04/16/19 07:15 Calcium 8.6 mg/dL (8.4-10.2) 04/16/19 07:15 Phosphorus 3.40 mg/dL (2.5-4.5) D 04/16/19 07:15 Magnesium 2.10 mg/dL (1.7-2.3) 04/15/19 12:59 0.30 mg/dL (0.1-1.2) 04/16/19 07:15 AST 12 units/L (5-40) 04/16/19 07:15 ALT 9 units/L (7-56) 04/16/19 07:15 47 units/L (35-129) 04/16/19 07:15 5.7 g/dL (6.3-8.2) L D 04/16/19 07:15 3.1 g/dL (3.9-5) L 04/16/19 07:15 1.2 % 04/16/19 07:15 Amylase 41 units/L (27-131) 04/14/19 13:54 7 units/L (13-60) L 04/14/19 13:54 Yellow (Yellow) 04/14/19 19:00 Clear (Clear) 04/14/19 19:00 6.0 (5.0-7.0) 04/14/19 19:00 Ur Specific [place] 1.018 (1.003-1.030) 04/14/19 19:00 30 mg/dl mg/dL (Negative) 04/14/19 19:00 Neg mg/dL (Negative) 04/14/19 19:00 Neg mg/dL (Negative) 04/14/19 19:00 Neg (Negative) 04/14/19 19:00 Neg (Negative) 04/14/19 19:00 Neg (Negative) 04/14/19 19:00 < 2.0 mg/dL (<2.0) 04/14/19 19:00 Ur Leukocyte Esterase Neg (Negative) 04/14/19 19:00 6.0 /HPF (0.0-6.0) 04/14/19 19:00 9.0 /HPF (0.0-6.0) 04/14/19 19:00 U Epithel Cells (Auto) 2.0 /HPF (0-13.0) 04/14/19 19:00 2+ /HPF 04/14/19 19:00 Few /HPF 04/14/19 19:00 Active Medications - Current Medications Current Medications: Generic Name Dose Route Start Last Admin Trade Name Freq PRN Reason Stop Dose Admin Albuterol 2.5 mg 04/14/19 13:39 Proventil IH Q4HRT PRN Shortness Of Breath Bisacodyl 10 mg 04/14/19 17:39 04/16/19 00:21 Dulcolax MD 10 mg QDAY PRN Administration Constipation Dextrose/Lactated Ringer's 1,000 mls @ 150 mls/hr 04/15/19 10:30 D5lr IV DIRECT LAWANDA Metoclopramide HCl 10 mg 04/14/19 13:24 04/15/19 08:44 Reglan IV 10 mg Q6H PRN Administration Nausea And Vomiting Morphine Sulfate 2 mg 04/14/19 13:24 04/14/19 23:17 Morphine IV 2 mg Q4H PRN Administration Pain, Moderate (4-6) Naloxone HCl 0.1 mg 04/14/19 13:24 Narcan 0.4 Mg/1 Ml IV Q2MIN PRN Res Rate </= 8 or 02 SAT < 92% Ondansetron HCl 4 mg 04/14/19 13:24 04/15/19 08:45 Zofran IV 4 mg Q8H PRN Administration Nausea And Vomiting Oxycodone/Acetaminophen 2 tab 04/14/19 21:28 04/16/19 08:44 Percocet 5/325 PO 2 tab Q6H PRN Administration Pain, Moderate (4-6) Polyethylene Glycol 17 gm 04/15/19 14:32 Miralax 3350 PO QDAY PRN Constipation Zolpidem Tartrate 10 mg 04/14/19 21:28 04/16/19 00:32 Ambien PO 10 mg QHS PRN Administration Insomnia
[2019-04-16] MEDS: MORPHINE IV PRN ×2 (11:56→20:17)
[2019-04-16 21:01] LABS: Bilirubin,Urine NEG (Negative); Blood,Urine MOD (Negative); Color,Urine Yellow (Yellow); Mucus,Urine FEW /HPF; Protein,Urine <15 mg/dL mg/dL (Negative)
[2019-04-16] MEDS: ROCEPHIN/NS 1 GM/50 ML 1 GM/50 ML BAG IV SCH (22:56)
[2019-04-17] MEDS: PERCOCET 5/325 PO PRN ×3 (00:17→15:08)
[2019-04-17] MEDS: ROCEPHIN/NS 1 GM/50 ML 1 GM/50 ML BAG IV SCH (10:46)
--- NOTE | 2019-04-17 14:39 | Progress Note ---
Assessment and Plan A: POD#9 s/p robotic hysterectomy with bilateral salpingo-oophorectomy Nausea/vomiting/inability to tolerate- resolved Prerenal acute renal insufficiency- resolved Abdominal pain- improved Asthma P: Discharge pt home today with close follow up next week in the office. Subjective - Subjective Date of service: 04/17/19 Principal diagnosis: Prerenal kidney, n,v Interval history: Pt feeling well today. Though she initially had trouble voiding when the becker was removed yesterday, she ultimately was able to void. She did report dysuria subsequently. A urinalysis is consistent with cystitis so she has been treated with IV Rocephin. She is tolerating regular diet and is passing flatus. Today pt gives additional history that she has had issues with constipation "my whole life." Patient reports: appetite normal, voiding normally, pain well controlled, flatus, ambulating normally, no nauseated Objective - Vital Signs Latest vital signs: Vital Signs Temp Pulse Pulse Pulse Pulse Resp BP 04/17/19 10:00 66 18 04/17/19 05:18 98.7 F 66 20 94/60 04/16/19 23:57 98.7 F 79 20 121/75 04/16/19 22:00 72 72 16 04/16/19 19:54 97.7 F 72 18 100/71 04/16/19 18:11 98.2 F 79 18 100/62 Pulse Ox 04/17/19 10:00 04/17/19 05:18 99 04/16/19 23:57 97 04/16/19 22:00 04/16/19 19:54 99 04/16/19 18:11 97 Intake and Output 04/16/19 04/17/19 04/17/19 22:59 06:59 14:59 Intake Total 480 50 120 Output Total 900 900 Balance -420 -850 120 Intake: IV 50 ROCEPHIN/NS 1 GM/50 ML 1 50 gm In 50 ml @ 100 mls/hr IV Q24HR LAWANDA Rx#: [id number] Oral 480 120 Output: Urine 900 900 Void 600 900 Other: Total, Intake Amount 480 120 Total, Output Amount 600 900 Voiding Method Toilet Toilet # Voids 1 Void 2 # Bowel Movements 0 Weight 80.7 kg - Exam Breasts: Present: deferred Cardiovascular: Present: Regular rate Lungs: Present: Clear to auscultation Abdomen: Present: soft, normal bowel sounds Uterus: Present: normal Incision: Present: intact - Labs Labs: Abnormal lab results 04/16/19 Range/Units 20:32 Urine WBC (Auto) 32.0 H (0.0-6.0) /HPF
--- NOTE | 2019-04-17 14:42 | Discharge Summary ---
Providers - Providers Date of Admission: 04/14/19 13:20 Date of discharge: 04/17/19 Attending physician: BELKYS DOBBINS 04/14/19 19:00 Consult to Physician [CONS] Routine Comment: Ca Consulting Provider: ANASTACIO HCEW Physician Instructions: Reason For Exam: acute renal failure, s/p hysterectomy 04/14/19 21:33 Consult to Physician [CONS] Routine Comment: Consulting Provider: TACOS NICHOLS Physician Instructions: Reason For Exam: electrolyte imbalance, acute renal failure, s/p hy Primary care physician: KNOTTER HAND Hospitalization Reason for admission: other (Nausea, vomiting, constipation ) Hospital course: Pt was admitted secondary to weakness, nausea, vomiting and abdominal pain after robotic hysterectomy. She was given IV fluid, antiemetics and pain medication. During her hospitalization, she was found to have acute renal insufficiency with creatinine peaking at 6.8. Nephrology was consulted with recommendation for a sodium bicarbonate drip, IV hydration with normal saline and avoidance of NSAIDs. With hydration, the patient's creatinine normalized and her nausea and vomiting resolved. She did have an abdominal x-ray on admission which was within normal limits. On hospital day # 3, the patient's becker catheter was removed and she had difficulty voiding initially but developed dysuria. A urinalysis revealed cystitis which was treated with IV Rocephin. On hospital day #4, the patient met discharge criteria. She will follow up in the office next week Saturday or Saturday. She will continue to avoid nephrotoxic medications like NSAIDs. Condition at discharge: Stable Disposition: - TO HOME OR SELFCARE - Discharge Diagnoses (1) Nausea and vomiting Status: Acute Qualifiers: Vomiting Intractability: unspecified (2) Acute renal insufficiency Status: Resolved (3) Constipation Status: Acute Qualifiers: Constipation type: unspecified constipation type Qualified Code(s): K59.00 - Constipation, unspecified (4) Hx of hysterectomy Status: Acute (5) Post-operative pain Status: Acute Plan - Discharge Medications Prescriptions: Nitrofurantoin [place]/M-Cryst [Macrobid CAP] 100 mg PO Q12HR #14 capsule oxyCODONE /ACETAMINOPHEN [Percocet 5/325] 1 tab PO Q6HR PRN #30 tablet PRN Reason: Pain - Provider Discharge Summary Activity: routine, no sex for 6 weeks, no heavy lifting 4 weeks, no strenuous exercise Diet: routine Instructions: routine Additional instructions: [] Smoking cessation referral if applicable(refer to patient education folder for contact #) [] Refer to [facility]'s [facility] Booklet Call your doctor immediately for: * Fever > 100.5 * Heavy vaginal bleeding ( >1 pad per hour) * Severe persistent headache * Shortness of breath * Reddened, hot, painful area to leg or breast * Drainage or odor from incision. * Keep incision clean and dry at all times and follow doctor's instructions regarding bathing/showering - Follow up plan Follow up: PRIMARY CARE, [Primary Care Provider] - 7 Days AI PÉREZ MD [Staff Physician] - 04/21/19 (Please call to schedule postop appt ) ROSALIO TORREZ MD [Staff Physician] - 14 Days (Please call to schedule a follow up appt with the Title Attorney )
[2019-04-17 15:22] VITALS: BP 124/79
== END 2019-04-17 15:27 | disposition home or self-care (01) | DRG 689 ==
LOC: 3A 12:46 → UNDOADMIN 12:46 → OB 13:20 → 4A 22:53
PROVIDERS: ADMIT Obstetrics & Gynecology; ATTEND Obstetrics & Gynecology
DX: N30.90 Cystitis, unspecified without hematuria (principal); N17.0 Acute kidney failure with tubular necrosis; E87.1 Hypo-osmolality and hyponatremia; K56.609 Unspecified intestinal obstruction, unspecified as to partial versus complete obstruction; K59.00 Constipation, unspecified; E83.39 Other disorders of phosphorus metabolism; E87.5 Hyperkalemia; Z82.49 Family history of ischemic heart disease and other diseases of the circulatory system; Z90.710 Acquired absence of both cervix and uterus; Z79.51 Long term (current) use of inhaled steroids; Z79.899 Other long term (current) drug therapy
CPT/HCPCS: 36415; 74019; 76770; 80048; 80053; 81001; 82150; 83690; 83735; 84100; 85025; 85027; 87086; 93005; 93010; G0378; J0696; J1885; J2270; J2405; J2765; J7030; J7040; J7070; J7121

== ENCOUNTER 2022-02-22 13:46 | Emergency (ER) | payer MEDICAID ==
[2022-02-22 14:00] VITALS: BP 116/69
--- NOTE | 2022-02-22 14:18 | Emergency Department Report ---
Blank Doc - Documentation Documentation: 41-year-old female that presents with dizziness and nausea vomiting. 1- This is a initial triage assessment/medical screening only. Full assessment and work-up will be completed once the patient is in proper hospital gown, ED bed and in a private room setting. This initial assessment/diagnostic orders/clinical plan/ treatment(s) is/are subject to change based on pt's health status, clinical progression and re-assessment by fellow clinical providers in the ED. Further treatment and workup at subsequent clinical providers discretion. Patient/guardians urged not to elope from ED as their condition may be serious if not clinically assessed and managed. 2-labs 3-EKG 4-UA The patient was evaluated in the emergency department for symptoms described in the history of present illness. He/she was evaluated in the context of the global COVID-19 pandemic, which necessitated consideration that the patient might be at risk for infection with the virus that causes COVID-19. Institutional protocols and algorithms that pertain to the evaluation of patients at risk for COVID-19 are in a state of rapid change based on information released by regulatory bodies including the CDC and federal and state organizations. These policies and algorithms were followed during the p atient's care in the emergency department. Please note that these policies, procedures and recommendations changed on a rapid basis.
[2022-02-22 14:47] LABS: Alanine Aminotransferase 11 units/L (7-56); Albumin 4.1 g/dL (3.9-5); BUN/Creatinine Ratio 11; Blood Urea Nitrogen 9 mg/dL (7-17); Calcium 9.6 mg/dL (8.4-10.2); Hemolysis Index 1
[2022-02-22 14:53] LABS: Basophils % (Auto) 0.5 % (0.0-1.8); Eosinophils # (Auto) 0.2 K/mm3 (0.0-0.4); Eosinophils % (Auto) 3.7 % (0.0-4.3); Hematocrit 40.1 % (30.3-42.9); Hemoglobin 13.4 gm/dl (10.1-14.3); Lymphocytes % (Auto) 34.4 % (13.4-35.0); Mean Corpuscular HGB Conc 33 % (30-34); Mean Corpuscular Volume 100 fl (79-97); Monocytes # (Auto) 0.4 K/mm3 (0.0-0.8); Monocytes % (Auto) 6.3 % (0.0-7.3); Platelet Count 416 K/mm3 (140-440); Red Blood Count 4.03 M/mm3 (3.65-5.03); Red Cell Distribution Width 12.5 % (13.2-15.2)
--- NOTE | 2022-02-22 19:29 | XRay Report ---
CHEST 2 VIEWS INDICATION / CLINICAL INFORMATION: dizziness. COMPARISON: None available. FINDINGS: SUPPORT DEVICES: None. HEART / MEDIASTINUM: No significant abnormality. LUNGS / PLEURA: No significant pulmonary or pleural abnormality. No pneumothorax. ADDITIONAL FINDINGS: No significant additional findings. IMPRESSION: 1. No acute findings. Signer Name: Jamshid Porras MD Signed: 02/22/2022 7:25 PM Workstation Name: [id number]
[2022-02-22] MEDS ORDERED: SODIUM CHLORIDE 0.9% 1000 ML 1,000 ML IV ONE (21:17)
[2022-02-22] MEDS ORDERED: METOCLOPRAMIDE 10 MG/2 ML INJ IV ONE (21:17)
[2022-02-22] MEDS ORDERED: diphenhydrAMINE 50 MG/ML VIAL IV ONE (21:17)
--- NOTE | 2022-02-22 23:40 | Emergency Department Report ---
ED General Adult HPI - General Chief complaint: Dizziness Stated complaint: DIZZY/SWEATING/NAUSEA Time Seen by Provider: 02/22/22 13:58 Source: patient Mode of arrival: Ambulatory Limitations: No Limitations - History of Present Illness Initial comments: Is a 41-year-old female who presents for dizziness and nausea vomiting x2 days. Symptoms are intermittent. Patient denies fevers chills as nonproductive cough. There is no chest pain. Symptoms are rated at 2/10 at this time. Patient is tolerating p.o. intake including evening meal 100% at this time. Patient alert oriented x2 patient is ambulatory. Patient has initiated COVID vaccinations. H owever patient denies suspicious contact travel or other symptoms. Symptoms are relieved by rest. - Related Data Home Medications Medication Instructions Recorded Confirmed Last Taken ALBUTEROL NEB's [Proventil] 2.5 mg IH TID PRN 12/12/18 04/14/19 Unknown Albuterol Sulfate [Ventolin Hfa] 2 puff IH Q4H PRN 12/12/18 04/14/19 2 Months Ago ~02/11/19 Ibuprofen [Motrin] 800 mg PO Q8HR PRN 12/12/18 04/14/19 04/13/19 23:00 Previous Rx's Medication Instructions Recorded Last Taken Type Docusate Sodium [Colace] 100 mg PO BID PRN #60 capsule 04/09/19 04/13/19 Rx Ibuprofen [Motrin] 800 mg PO Q8HR PRN #60 tablet 04/09/19 04/13/19 23:00 Rx oxyCODONE /ACETAMINOPHEN [Percocet 1 tab PO Q6HR PRN #30 tablet 04/09/1904/23 23:00 Rx 5/325] oxyCODONE /ACETAMINOPHEN [Percocet 1 tab PO Q6HR PRN #30 tablet 04/16/19 Unknown Rx 5/325] Nitrofurantoin [place]/M-Cryst 100 mg PO Q12HR #14 capsule 04/17/19 Unknown Rx [Macrobid CAP] Ondansetron [Zofran Odt] 4 mg PO Q8HR PRN #12 tab.rapdis 02/22/22 Unknown Rx Allergies Allergy/AdvReac Type Severity Reaction Status Date / Time No Known Allergies Allergy Verified 02/22/22 14:00 ED Review of Systems ROS: Stated complaint: DIZZY/SWEATING/NAUSEA Other details as noted in HPI Constitutional: denies: chills, fever Eyes: denies: eye pain, eye discharge, vision change ENT: denies: ear pain, throat pain Respiratory: denies: cough, shortness of breath, wheezing Cardiovascular: denies: chest pain, palpitations Endocrine: no symptoms reported Gastrointestinal: denies: abdominal pain, nausea, diarrhea Genitourinary: denies: urgency, dysuria, discharge Musculoskeletal: denies: back pain, joint swelling, arthralgia Skin: denies: rash, lesions Neurological: denies: headache, weakness, paresthesias, vertigo Psychiatric: denies: anxiety, depression Hematological/Lymphatic: denies: easy bleeding, easy bruising ED Past Medical Hx - Past Medical History Hx Hypertension: No Hx Heart Attack/AMI: No Hx Congestive Heart Failure: No Hx Diabetes: No Hx Deep Vein Thrombosis: No Hx Pulmonary Embolism: No Hx GERD: No Hx Liver Disease: No Hx Renal Disease: No Hx Sickle Cell Disease: No Hx Arthritis: No Hx Headaches / Migraines: No Hx Seizures: No Hx Kidney Stones: No Hx Asthma: Yes (Self and sister) Hx COPD: No Hx Tuberculosis: No Hx Dementia: No Hx HIV: No - Surgical History Hx Coronary Stent: No Hx Pacemaker: No Hx Internal Defibrillator: No Additional Surgical History: x 2 , tubal ligation, Total hysterectomy, - Social History Smoking Status: Former Smoker Substance Use Type: None - Medications Home Medications: Home Medications Medication Instructions Recorded Confirmed Last Taken Type ALBUTEROL NEB's [Proventil] 2.5 mg IH TID PRN 12/12/18 04/14/19 Unknown History Albuterol Sulfate [Ventolin Hfa] 2 puff IH Q4H PRN 12/12/18 04/14/19 2 Months Ago History ~02/11/19 Ibuprofen [Motrin] 800 mg PO Q8HR PRN 12/12/18 04/14/19 04/13/19 23:00 History Docusate Sodium [Colace] 100 mg PO BID PRN #60 capsule 04/09/19 04/14/19 04/13/19 Rx Ibuprofen [Motrin] 800 mg PO Q8HR PRN #60 tablet 04/09/19 04/14/19 04/13/19 23:00 Rx oxyCODONE /ACETAMINOPHEN [Percocet 1 tab PO Q6HR PRN #30 tablet 04/09/19 04/14/19 04/13/19 23:00 Rx 5/325] oxyCODONE /ACETAMINOPHEN [Percocet 1 tab PO Q6HR PRN #30 tablet 04/16/19 Unknown Rx 5/325] Nitrofurantoin [place]/M-Cryst 100 mg PO Q12HR #14 capsule 04/17/19 Unknown Rx [Macrobid CAP] Ondansetron [Zofran Odt] 4 mg PO Q8HR PRN #12 tab.rapdis 02/22/22 Unknown Rx ED Physical Exam - General Limitations: No Limitations General appearance: alert, in no apparent distress - Head Head exam: Present: normocephalic, normal inspection - Eye Eye exam: Present: EOMI Pupils: Present: normal accommodation - ENT ENT exam: Present: mucous membranes moist - Neck Neck exam: Present: normal inspection, full ROM. Absent: tenderness, lymphadenopathy - Respiratory Respiratory exam: Present: normal lung sounds bilaterally. Absent: respiratory distress, wheezes, stridor, chest wall tenderness - Cardiovascular Cardiovascular Exam: Present: regular rate, normal rhythm, normal heart sounds. Absent: systolic murmur, diastolic murmur, rubs, gallop - GI/Abdominal GI/Abdominal exam: Present: soft, normal bowel sounds. Absent: distended, tenderness, guarding, rebound, rigid, bruit, hernia - Rectal Rectal exam: Present: deferred - Extremities Exam Extremities exam: Present: normal inspection, full ROM, normal capillary refill. Absent: tenderness - Back Exam Back exam: Present: normal inspection, full ROM. Absent: CVA tenderness (R), CVA tenderness (L) - Neurological Exam Neurological exam: Present: alert, oriented X3, CN II-XII intact, normal gait - Expanded Neurological Exam Expanded Patient oriented to: Present: person, place, time Speech: Present: fluid speech Motor strength exam: RUE: 5, LUE: 5, RLE: 5, LLE: 5 Best Eye Response ([place]): (4) open spontaneously Best Motor Response ([place]): (6) obeys commands Best Verbal Response ([place]): (5) oriented [place] Total: 15 - Psychiatric Psychiatric exam: Present: normal affect, normal mood - Skin Skin exam: Present: warm, dry, intact, normal color. Absent: rash ED Course Vital Signs 02/22/22 13:57 Temperature 98.9 F Pulse Rate 103 H Respiratory 18 Rate Blood Pressure 116/69 [Left] O2 Sat by Pulse 100 Oximetry ED Medical Decision Making - Lab Data Result diagrams: 02/22/22 14:18 02/22/22 14:18 Labs 02/22/22 02/22/22 02/22/22 14:18 14:18 14:18 WBC 5.8 RBC 4.03 Hgb 13.4 Hct 40.1 MCV 100 H MCH 33 H MCHC 33 RDW 12.5 L Plt Count 416 Lymph % (Auto) 34.4 [place] % (Auto) 6.3 Eos % (Auto) 3.7 Baso % (Auto) 0.5 Lymph # (Auto) 2.0 [place] # (Auto) 0.4 Eos # (Auto) 0.2 Baso # (Auto) 0.0 Seg Neutrophils % 55.1 Seg Neutrophils # 3.2 Sodium 140 Potassium 4.3 Chloride 103.0 Carbon Dioxide 27 Anion Gap 14 BUN 9 Creatinine 0.8 Estimated GFR > 60 BUN/Creatinine Ratio 11 Glucose 129 H Calcium 9.6 Total Bilirubin 0.50 AST 15 ALT 11 Alkaline Phosphatase 83 Troponin T Total Protein 7.3 Albumin 4.1 Albumin/Globulin Ratio 1.3 HCG, Qual Negative 02/22/22 20:21 WBC RBC Hgb Hct MCV MCH MCHC RDW Plt Count Lymph % (Auto) [place] % (Auto) Eos % (Auto) Baso % (Auto) Lymph # (Auto) [place] # (Auto) Eos # (Auto) Baso # (Auto) Seg Neutrophils % Seg Neutrophils # Sodium Potassium Chloride Carbon Dioxide Anion Gap BUN Creatinine Estimated GFR BUN/Creatinine Ratio Glucose Calcium Total Bilirubin AST ALT Alkaline Phosphatase Troponin T < 0.010 Total Protein Albumin Albumin/Globulin Ratio HCG, Qual - Radiology Data Radiology results: report reviewed, image reviewed CHEST 2 VIEWS INDICATION / CLINICAL INFORMATION: dizziness. COMPARISON: None available. FINDINGS: SUPPORT DEVICES: None. HEART / MEDIASTINUM: No significant abnormality. LUNGS / PLEURA: No significant pulmonary or pleural abnormality. No pneumothorax. ADDITIONAL FINDINGS: No significant additional findings. IMPRESSION: 1. No acute findings. Signer Name: Jamshid Porras MD Signed: 02/22/2022 7:25 PM Workstation Name: [id number] Transcribed By: EZEKIEL Dictated By: Jamshid Porras MD Electronically Authenticated By: Jamshid Porras MD Signed Date/Time: 02/22/221924 DD/ 24 TD/TT: - Medical Decision Making This is likely a viral syndrome chest x-ray is clear, EKG sinus tachycardia resolved with medications given in ED including IV fluids. Labs are normal UA is normal. Plan DC home, take medications as prescribed, continue to hydrate, follow-up with your doctor in 2 to 3 days. Critical care attestation.: If time is entered above; I have spent that time in minutes in the direct care of this critically ill patient, excluding procedure time. ED Disposition Clinical Impression: Vertigo, Viral syndrome Disposition: HOME / SELF CARE / HOMELESS Is pt being admited?: No Does the pt Need Aspirin: No Condition: Stable Instructions: Viral Illness, Adult, Dizziness Additional Instructions: Take medications as prescribed, continue to hydrate as directed. Follow-up with your primary care doctor in 2 to 3 days. Return to the emergency department if symptoms worsen. Prescriptions: Ondansetron [Zofran Odt] 4 mg PO Q8HR PRN #12 tab.rapdis PRN Reason: Nausea Referrals: ASHKAN ZAIDI MD [Staff Physician] - 3-5 Days Forms: Work/School Release Form(ED) Time of Disposition: 23:48
[2022-02-23 00:17] LABS: Bilirubin,Urine Negative (Negative); Color,Urine Yellow (Yellow)
[2022-02-23 00:18] LABS: Blood,Urine Negative (Negative); PH,Urine 6.5 (5.0-7.0); Protein,Urine <15 mg/dL mg/dL (Negative); Urobilinogen,Urine 0.2 mg/dL (<2.0)
[2022-02-23 00:25] LABS: Mucus,Urine 3+ /HPF
--- NOTE | 2022-02-23 14:08 | Electrocardiograph Report ---
[facility] Test Date: 2022-02-22 Test Time: 14:04:36 Pat Name: JONY BREEN Department: Room: Gender: F Hog Feeder: NURSE : 1980 Requested By: GLENNA LEE Order Number: [id number] Reading MD: Richmond Ruiz Measurements Intervals [place] Rate: 110 P: 65 WI: 132 QRS: 63 QRSD: 74 T: 35 QT: 315 QTc: 427 Interpretive Statements Sinus tachycardia LAE, consider biatrial enlargement No previous ECG available for comparison Electronically Signed On 02-23-2022 14:08:16 EDT by Richmond Ruiz
== END 2022-02-23 00:03 | disposition home or self-care (01) ==
LOC: ED 13:46
DX: B34.9 Viral infection, unspecified (principal); R42 Dizziness and giddiness; J45.909 Unspecified asthma, uncomplicated; Z87.891 Personal history of nicotine dependence; Z79.899 Other long term (current) drug therapy
CPT/HCPCS: 36415; 71046; 80053; 81001; 84484; 84703; 85025; 93005; 96361; 96374; 96375; 99284; J1200; J2765; J7030